=== PATIENT | female | born 1990 | race Caucasian/White ===

== ENCOUNTER 2019-09-27 09:25 | Inpatient (IN) | payer OTHER, SELFPAY ==
--- NOTE | 2019-09-24 14:12 | HP.PCM_ITS ---
History and Physical Date of Admission: 09/27/19 Deedee Arguelles Physician [employer] Signed Encounter Date: 09/20/2019 Expand All Collapse All Hide copied text Rosa for details Tania Gama is a 29 year old female who presents for pre op for cs. Pt reports no concerns today. Pt declines ECV and would like to proceed with pr imary cs. ? PAST MEDICAL HISTORY PAST MEDICAL HISTORY Diagnosis Date ? Abnormal Pap smear of cervix ? ? ascus pos hpv 2015 ? Anemia 2009 ? iron deficiency ? Bicornuate uterus ? ? C. difficile colitis 10/2015 ? Chronic kidney disease ? ? Dysmenorrhea 10/24/2012 ? ? Endometriosis ? Major depression, recurrent (HCC) 01/01/2013 ? PMH - PAST MEDICAL HISTORY OF ? ? Color Vision - Normal ? PMH - PAST MEDICAL HISTORY OF remission ? Nephrotic Syndrome ? Positive KATHRIN (antinuclear antibody) 10/2015 ? Vitamin D deficiency 10/2015 ? PAST SURGICAL HISTORY PAST SURGICAL HISTORY Procedure Laterality Date ? NONE ? ? ? FAMILY HISTORY FAMILY HISTORY Problem Relation Age of Onset ? Hypertension Maternal Grandfather ? ? Breast Cancer Maternal Grandfather 80 ? left breast, primary ? Alzheimer's Disease Maternal Grandmother ? ? other (Chronic Depression) Mother ? ? other (Kidney Stones) Father ? ? other (Other) Father ? ? bowel obstruction, colon resection/colostomy ? Cancer Other ? ? maternal aunt, form of blood dyscrasia ? SOCIAL HISTORY Social History ? Tobacco Use ? Smoking status: Former Smoker ? ? Packs/day: 0.50 ? ? Types: Cigarettes ? ? Start date: 03/31/2015 ? ? Last attempt to quit: 02/02/2016 ? ? Years since quittin.6 ? Smokeless tobacco: Never Used ? Tobacco comment: smoking 0.5 pack per day on and off since 03/2015 Substance Use Topics ? Alcohol use: Not Currently ? ? Comment: Occassionally ? Drug use: No ? CURRENT MEDICATIONS Current Outpatient Medications Medication Sig ? famotidine (PEPCID) 20 mg tablet Take 1 tablet by mouth twice daily. ? vit 91/iron/folic/dha ( + DHA ORAL) Take by mouth. ? No current facility-administered medications for this visit. ? Allergies As of Date: 09/20/2019 Allergen Noted Reaction SEASONALE [LEVONORGESTREL-ETHINYL*11/08/2013 Rash, Hives, and Itching AMOXICILLIN 07/15/2011 Rash CEFDINIR 10/10/2012 GI Upset SEASONIQUE [L NORGEST/E.ESTRADIOL*09/02/2015 Hives SULFA (SULFONAMIDE ANTIBIOTICS) 07/15/2011 Other: See Comments ? Fully Assessed 09/20/2019 ? ? REVIEW OF SYSTEMS Abdomen: no pain Bladder: no dysuria . Expanded ROS: GENERAL: Negative for fever Allergies and current medication updated:Yes ? EXAM: BP 110/70 Wt 155 lb (70.3kg) LMP 12/24/2018 ? GENERAL: pleasant, female in no apparent distress HEENT: Normocephalic and atraumatic NECK: full range of motion DERMATOLOGY: Normal, without lesions, non-icteric and non-hirsute ABDOMEN: gravid, non tender. PELVIC: deferred BIMANUAL: deferred NEURO: alert and oriented x3,exam grossly non-focal EXTREMITIES: normal ? ASSESSMENT AND PLAN: Encounter Diagnosis ? ? ICD-10-CM ? 1. Visit for screening Z36.9 URINE OB DIP B/O 2. 38 weeks gestation of Z3A.38 URINE OB DIP B/O ? 3. Pt has been counseled on risks/benefits and alternatives of surgery including but not limited to anesthesia, bleeding, infection, injury to pelvic structures including bowel, bladder, ureters and vessels. Pt wishes to proceed with surgery at this time. 4. Consent signed and faxed to L&D ? Deedee Wright MD ?3:03 PM Routine Office Visit on 09/20/2019
[2019-09-27] VITALS (15 sets, daily range): BP systolic 103–115; BP diastolic 60–75; PULSE 64–81; RESP 12–16; TEMP 36.3–37.3; O2SAT 96–99; BMI 27.5
[2019-09-27] MEDS: Lactated Ringers 1,000 ML 999 ML IV (10:30)
[2019-09-27 10:46] LABS: Absolute Lymphocyte Count 1.51 X10^3/uL (0.83-4.51); Absolute Neutrophil Count 9.8 X10^3/uL (2.0-7.7); Basophil# 0.07 X10^3/uL; Basophil% 0.6 % (0-1); Eosinophil# 0.19 X10^3/uL; Eosinophils% 1.5 % (0-5); Hematocrit 37.8 % (37-47); Hemoglobin 12.9 g/dL (12.0-15.0); Lymphocyte # 1.51 X10^3/ul (4.0); Lymphocyte % 12.3 % (19-41); Mean Corp Hgb Conc 34.1 g/dL (32-36); Mean Corpuscular Hgb 31.8 pg (27.0-32.0); Mean Corpuscular Volume 93.1 fL (81-99); Mean Platelet Vol. 11.1 fl (6.2-12.0); Monocyte# 0.57 X10^3/uL; Monocyte% 4.6 % (0-10); NRBC Flagged by Analyzer 0 % (0-5); Neutrophil % 79.9 % (47-70); Platelet Count 210 K/mm3 (150-450); RBC Distribution Width CV 13.2 % (11.6-14.6); RBC Distribution Width SD 45.3 fl (35.1-43.9); Red Blood Count 4.06 M/mm3 (4.2-5.4); White Blood Count 12.3 K/mm3 (4.4-11.0)
[2019-09-27] MEDS: Lactated Ringers 1,000 ML 150 ML IV (11:40)
[2019-09-27] MEDS: Sodium Citrate/Citric Acid 30 ML UDC PO (11:40)
[2019-09-27 11:50] LABS: Hepatitis B Surface Antigen Non-Reactive (Nonreactive)
[2019-09-27] MEDS: Cefazolin 2 GM in 0.9% Normal Saline 100 ML IV (11:58)
[2019-09-27] MEDS: Oxytocin 30 units/NS 500 ml 30 UNITS/500 ML IV.SOLN 167 UNITS IV (13:00)
--- NOTE | 2019-09-27 13:09 | PCM.OPRPT ---
Delivery Classification: Scheduled Final SEPIDEH: 10/04/19 Gestational age: 39 Weeks and 0 Days roller mill tender: Wm Muñoz Type of Anesthesia:: Spinal Implants Used: none Date of Procedure: 09/27/19 Pre-Operative Diagnosis: Term gestation, Breech presentation Post-Operative Diagnosis: same, live male Indications for : Breech Description of Procedure: After informed consent was obtained the patient was taken the operating room she was given spinal anesthesia. She was then placed in the supine position. She was prepped and draped in the normal sterile fashion. Anesthesia was found to be adequate. At this time a Pfannenstiel skin incision was made with a knife was carried down to the underlying layer of the fascia. The fascial incision was then extended laterally using curved Verdugo scissor. attention was then turned to the superior aspect of the fascial edge was grasped with 2 straight Bobby clamps tented up and the rectus muscle dissected off sharply using curved Verdugo scissor. Attention was then turned to the inferior aspect where again Bobby clamps were placed in the rectus muscles were tented up and the fascia was dissected off sharply using the curved Verdugo scissor. Rectus muscles were then in the midline bluntly and peritoneum was entered bluntly. Gentle opposing traction was placed. At this time the vesicouterine peritoneum was identified. Scalpel was used to make a uterine incision in a low transverse fashion. The uterus was then entered bluntly gentle opposing traction was placed to extend this incision. Membranes were ruptured clear. 's buttocks was brought to the uterine incision was delivered atraumatically followed by rest of infant body. Delayed cord clamping - Cord was clamped and cut infant was handed to the waiting nursery team. The Placenta was removed from the uterus. The uterus was then removed from the abdominal cavity. The uterus was cleared of all clots and debris using a lap. At this time the uterine incision was reapproximated using #1 Vicryl in a running locked fashion. Hemostasis was appreciated. Posterior cul-de-sac was then cleared of all clots and debris. Uterus was placed back in the abdominal cavity. Gutters were cleared of all clots and debris. Uterine incision was reevaluated and noted to be of excellent hemostasis. At this time the peritoneum was grasped with Kellys and reapproximated with muscle using #2 Vicryl suture in a running fashion. Fascia was then reapproximated using #1 Vicryl in a running fashion. Subcu layer was reapproximated with #2 0 plain gut suture in an interrupted fashion. Subcu layer was closed using 4-0 Monocryl in a subcu fashion. Dry sterile dressing was applied. Instrument lap needle count correct ?2. Anticipated normal postoperative course. Amniotic Membrane Rupture Type: Artificial Amniotic Fluid Description: Clear Placenta Disposition: [facility] Drain: Oseguera to straight drain Cord Entanglement: None Cord Vessel Description: 3 Vessels Esitmated Blood Loss (ml): 650 Infant Gender: Male (1 minute): 9 (5 minute): 9 Delayed cord clamping: Yes Antibiotic Given: Ancef 2 grams IV x1 Pt instructed on risks of surgery: Bleeding, Infection, Injury to surrounding structure(s) including bowel and bladder Complications: None - Admit VTE Documentation VTE Present on Admission: Yes VTE Mechan Device Prophylaxis: SCD's VTE Pharm Prophylaxis ordered?: No
--- NOTE | 2019-09-27 15:23 | NURSING ---
pt has indwelling urinary catheter
[2019-09-27] MEDS: Lactated Ringers 1,000 ML 100 ML IV (16:20)
[2019-09-27] MEDS: Ketorolac 30 MG/ML Syringe IV ×2 (18:03→23:36)
[2019-09-28 04:00] VITALS: BP 109/70; PULSE 76; RESP 16; TEMP 36.7
[2019-09-28] MEDS: Ketorolac 30 MG/ML Syringe IV ×3 (06:06→17:58)
[2019-09-28] MEDS: 0.9% Saline Lock 10 ML Syringe IV ×3 (06:07→17:59)
[2019-09-28 06:27] LABS: Hematocrit 36.9 % (37-47); Hemoglobin 12.3 g/dL (12.0-15.0); Mean Corp Hgb Conc 33.3 g/dL (32-36); Mean Corpuscular Hgb 31.6 pg (27.0-32.0); Mean Corpuscular Volume 94.9 fL (81-99); Mean Platelet Vol. 10.6 fl (6.2-12.0); Platelet Count 195 K/mm3 (150-450); RBC Distribution Width CV 13.3 % (11.6-14.6); RBC Distribution Width SD 45.8 fl (35.1-43.9); Red Blood Count 3.89 M/mm3 (4.2-5.4); White Blood Count 14.3 K/mm3 (4.4-11.0)
--- NOTE | 2019-09-28 08:15 | PCM.PN.OB ---
Subjective: pt seen at bedside, doing well. Patient reports good pain control. Mild lochia. Voiding without difficulty. Tolerating regular diet. Denies any nausea, vomiting, chest pain, shortness of breath. Breast-feeding. - Physical Exam Vitals/I&O's: Vital Signs Temp Pulse Resp BP Pulse Ox 98.0 F 76 16 109/70 96 09/28/19 04:00 09/28/19 04:00 09/28/19 04:00 09/28/19 04:00 09/27/19 23:00 Oxygen Delivery Method Room Air Weight: 70.488 kg Body Mass Index (BMI) 27.5 Intake and Output for Last 24 Hours 09/26/19 09/27/19 09/28/19 23:59 23:59 23:59 Intake Total 2874.17 / 2874.17 Output Total 900 / 900 650 / 650 Balance / -650 / -650 General: Alert, Oriented x3 Abdomen: Soft, Non-Distended, - - Incision dressing is dry and intact. Fundus is firm. Extremities: No Calf Tenderness Neurological: Cranial nerves II-XII grossly intact Laboratory Results 09/27/19 10:30: WBC 12.3 H, RBC 4.06 L, Hgb 12.9, Hct 37.8, MCV 93.1, MCH 31.8, MCHC 34.1, RDW Std Deviation 45.3 H, RDW Coeff of El 13.2, Plt Count 210, MPV 11.1, Immature Gran % (Auto) 1.100 H, Neut % (Auto) 79.9 H, Lymph % (Auto) 12.3 L, [place] % (Auto) 4.6, Eos % (Auto) 1.5, Baso % (Auto) 0.6, Absolute Neuts (auto) 9.8 H, Absolute Lymphs (auto) 1.51, Nucleated RBC % 0 09/27/19 10:30: Blood Type B POSITIVE, Antibody Screen NEGATIVE 09/27/19 10:30: Hep Bs Antigen Non-Reactive 09/28/19 06:20: WBC 14.3 H, RBC 3.89 L, Hgb 12.3, Hct 36.9 L, MCV 94.9, MCH 31.6, MCHC 33.3, RDW Std Deviation 45.8 H, RDW Coeff of El 13.3, Plt Count 195, MPV 10.6 Current Medications Acetaminophen (Tylenol) 1,000 mg PO Q8H PRN PRN Reason: Pain Score 1-3/10 Bisacodyl (Dulcolax) 10 mg RECTAL UD PRN PRN Reason: If no BM Hydrocortisone (Hytone) 1 applic TOPICAL TID PRN PRN; Protocol PRN Reason: Discomfort Lactated Ringer's () 1,000 mls @ 100 mls/hr IV .Q10H [facility] Last Admin: 09/27/19 22:31 Dose: Not Given Documented by: Naloxone HCl 4 mg/ Dextrose 504 mls @ 0 mls/hr IV .Q0M PRN; Protocol PRN Reason: Respiratory depression Ibuprofen (Motrin) 600 mg PO Q6H PRN PRN PRN Reason: Pain Score 1-3/10 Ketorolac Tromethamine (Toradol (Bkc)) 30 mg IV Q6H [facility] Stop: 09/29/19 12:01 Last Admin: 09/28/19 06:06 Dose: 30 mg Documented by: Methylergonovine Maleate (Methergine) 0.2 mg IM X1 PRN PRN Reason: Uterine Atony Naloxone HCl (Narcan) 0.02 mg IV Q1M PRN PRN Reason: RR <10 and pt unresponsive Ondansetron HCl (Zofran) 4 mg IV Q4H PRN PRN PRN Reason: Nausea Oxycodone HCl (Oxyir) 5 - 10 mg PO Q4H PRN PRN PRN Reason: Pain Score 4-10/10 Prochlorperazine Edisylate (Compazine Iv) 10 mg IV Q6H PRN PRN PRN Reason: NAUSEA Senna/Docusate Sodium (Senokot-S, Xiao-Colace) 0 tablet PO DAILY PRN PRN Reason: Constipation Simethicone (Mylicon) 80 mg PO PCHS PRN PRN Reason: Indigestion/stomach pain Sodium Chloride () 5 - 15 ml IV UD PRN PRN Reason: SALINE FLUSH Last Admin: 09/28/19 06:07 Dose: 10 ml Documented by: Medical Necessity - Tobacco Use Smoking Status: Former smoker Assessment/Plan POD #1, doing well routine care pain mgmt ambulation labs and vs stable
[2019-09-28 08:25] VITALS: BP 105/65; PULSE 63; RESP 16; TEMP 36.9; O2SAT 97
--- NOTE | 2019-09-28 08:25 | NURSING ---
This RN ordered case management consult for history of depression per protocol. Dr. Arguelles requested that order to be cancelled due to feeling that the patient is appropriate and doing well. Order cancelled per request.
[2019-09-28] MEDS: Senna/Docusate Sodium 1 Tablet PO (12:25)
[2019-09-28 12:30] VITALS: BP 109/77; PULSE 58; RESP 16; TEMP 37; O2SAT 100
[2019-09-28 16:30] VITALS: BP 112/80; PULSE 72; RESP 16; TEMP 37.1; O2SAT 97
[2019-09-28 19:57] VITALS: BP 111/74; PULSE 70; RESP 16; TEMP 36.6
[2019-09-29] MEDS: Ketorolac 30 MG/ML Syringe IV ×2 (00:36→06:35)
[2019-09-29] MEDS: 0.9% Saline Lock 10 ML Syringe IV ×2 (00:36→06:35)
[2019-09-29 02:31] VITALS: BP 116/69; PULSE 61; RESP 16; TEMP 36.6
[2019-09-29 07:30] VITALS: BP 114/73; PULSE 54; RESP 16; TEMP 36.5; O2SAT 96
--- NOTE | 2019-09-29 08:15 | PN.OBGYN_ITS ---
Subjective: Patient seen at bedside, doing well. Patient reports good pain control. Mild lochia. Voiding without difficulty, passing flatus. Breast-feeding. Patient requesting DC home today. - Physical Exam Vitals/I&O's: Vital Signs Temp Pulse Resp BP Pulse Ox 97.7 F L 54 L 16 114/73 96 09/29/19 07:30 09/29/19 07:30 09/29/19 07:30 09/29/19 07:30 09/29/19 07:30 Oxygen Delivery Method Room Air Weight: 70.488 kg Body Mass Index (BMI) 27.5 Intake and Output for Last 24 Hours 09/27/19 09/28/19 09/29/19 23:59 23:59 23:59 Intake Total 2874.17 / 2874.17 800 / 800 Output Total 900 / 900 1450 / 1450 Balance 1973.17 / 1973.17 -1450 / -1450 800 / 800 General: Alert, Oriented x3 Abdomen: Soft, Non-Distended, - - Fundus firm, incision dressing dry and intact Extremities: No Calf Tenderness Neurological: Cranial nerves II-XII grossly intact Current Medications Acetaminophen (Tylenol) 1,000 mg PO Q8H PRN PRN Reason: Pain Score 1-3/10 Bisacodyl (Dulcolax) 10 mg RECTAL UD PRN PRN Reason: If no BM Hydrocortisone (Hytone) 1 applic TOPICAL TID PRN PRN; Protocol PRN Reason: Discomfort Lactated Ringer's () 1,000 mls @ 100 mls/hr IV .Q10H [facility] Last Admin: 09/29/19 06:07 Dose: Not Given Documented by: Naloxone HCl 4 mg/ Dextrose 504 mls @ 0 mls/hr IV .Q0M PRN; Protocol PRN Reason: Respiratory depression Ibuprofen (Motrin) 600 mg PO Q6H PRN PRN PRN Reason: Pain Score 1-3/10 Ketorolac Tromethamine (Toradol (Bkc)) 30 mg IV Q6H [facility] Stop: 09/29/19 12:01 Last Admin: 09/29/19 06:35 Dose: 30 mg Documented by: Methylergonovine Maleate (Methergine) 0.2 mg IM X1 PRN PRN Reason: Uterine Atony Naloxone HCl (Narcan) 0.02 mg IV Q1M PRN PRN Reason: RR <10 and pt unresponsive Ondansetron HCl (Zofran) 4 mg IV Q4H PRN PRN PRN Reason: Nausea Oxycodone HCl (Oxyir) 5 - 10 mg PO Q4H PRN PRN PRN Reason: Pain Score 4-10/10 Prochlorperazine Edisylate (Compazine Iv) 10 mg IV Q6H PRN PRN PRN Reason: NAUSEA Senna/Docusate Sodium (Senokot-S, Xiao-Colace) 0 tablet PO DAILY PRN PRN Reason: Constipation Last Admin: 09/28/19 12:25 Dose: 1 tablet Documented by: Simethicone (Mylicon) 80 mg PO PCHS PRN PRN Reason: Indigestion/stomach pain Sodium Chloride () 5 - 15 ml IV UD PRN PRN Reason: SALINE FLUSH Last Admin: 09/29/19 06:35 Dose: 10 ml Documented by: Medical Necessity - Tobacco Use Smoking Status: Former smoker Assessment/Plan POD #2, doing well Routine care Ambulation Pain management DC home
--- NOTE | 2019-09-29 08:16 | DCINST_ITS ---
Discharge Diet: No Restrictions Discharge Activity: Return to Normal Activity, May Not Drive - for 2 weeks, May not drive while taking narcotic pain medications., May Shower, May Take a Tub Bath - in 7 days. May resume sexual activity in: 4-6 weeks Lifting Restrictions: 20 pounds Additional Activity Instructions:: Nothing in the vagina for 4-6 weeks. You may return to work/school in 6 weeks. Call your doctor if your incision/area has: Continuous Slow Oozing, Sudden Increased Bleeding, Increased Pain/ Swelling, Increased Redness, Foul Smelling Discharge Call your doctor if you observe: Fever of 101 or Higher, Using more than one pad per hour - for 2 hours Suture Line Care: Avoid Pulling/Pushing, Avoid Pinching/Bending Cleanse incision/area with: Keep Dressing Clean & Dry Additional Instructions: If you experience any of the following, contact your healthcare provider. * Bleeding that soaks a pad every hour for 2 hours * Fever 100.4 or higher * Unrelieved incision or abdominal pain * Swelling, redness, discharge or bleeding from your incision or episiotomy site * Your incision begins to separate * Problems urinating (including inability to urinate or burning while urinating). * Visual changes * Severe headache * Flu-like symptoms * Pain or redness in one of both of your breasts * Pain, warmth, tenderness or swelling in your legs, especially the calf area * Frequent nausea and vomiting * Symptoms of depression or anxiety If you experience any of the following, call 911 or go to the nearest Emergency Room. * Chest pain * Problems breathing * Seizure activity * Partial or complete paralysis of a body part, slurred speech, weakness or drooping of the face, or a sudden inability to walk or hold your balance Allergies/Adverse Reactions: Allergies amoxicillin Allergy (Verified 09/27/19 09:55) Hives cefdinir Allergy (Verified 09/27/19 09:55) Upset Stomach ethinyl estradiol [From Seasonale ()] Allergy (Verified 09/27/19 09:55) Hives levonorgestrel [From Seasonale (91)] Allergy (Verified 09/27/19 09:55) Hives levonorgestrel-ethinyl estradiol [From Seasonique] Allergy (Verified 09/27/19 09:55) Hives Sulfa (Sulfonamide Antibiotics) Allergy (Verified 09/27/19 09:55) Hives Medications to take at Discharge Vits [Prenatabs FA ] 1 tab PO DAILY 09/27/19 Acetaminophen [Tylenol] 1,000 mg PO Q8H PRN #60 tab 09/28/19 Ibuprofen [Motrin] 600 mg PO Q6H PRN PRN #60 tab 09/28/19 Oxycodone [Oxyir] 5 - 10 mg PO Q4H PRN PRN 7 Days #20 tab 09/28/19 Senna/Docusate Sodium [Senokot-S] 1 tab PO DAILY PRN #20 tab 09/28/19 SimETHICONE [Mylicon] 80 mg PO PCHS PRN #30 tab 09/28/19 The following prescriptions were given: Ibuprofen [Motrin] 600 mg PO Q6H PRN PRN #60 tab PRN Reason: Pain Score 1-3/10 Transmission Status: Received by [facility] [facility] SimETHICONE [Mylicon] 80 mg PO PCHS PRN #30 tab PRN Reason: Indigestion/stomach pain Transmission Status: Received by [facility] [place] [address] Oxycodone [Oxyir] 5 - 10 mg PO Q4H PRN PRN 7 Days #20 tab PRN Reason: Pain Score 4-10/10 Transmission Status: Received by [facility] [place] [address] Senna/Docusate Sodium [Senokot-S] 1 tab PO DAILY PRN #20 tab PRN Reason: Constipation Transmission Status: Received by [facility] [place] [address] Acetaminophen [Tylenol] 1,000 mg PO Q8H PRN #60 tab PRN Reason: Pain Score 1-3/10 Transmission Status: Received by [address] Follow-Up: Call to make an appointment with your doctor for an incision check in 1-2 weeks. You will also need a 6 week post- follow up appointment. Test results from this visit will be discussed in further detail at your follow- up appointment, if applicable. Please Follow Up With: Deedee Wright MD - Call to make an appointment for an incision check in [phone] When: You will need a post- check in 6 weeks. Primary Care Physician: Parrish Marie DO [Primary Care Provider] -
--- NOTE | 2019-09-29 08:17 | PCM.DC.BLA ---
Discharge Summary Date of Admission: 09/27/19 Date of Discharge: 09/29/19 Summary: Patient was admitted on October 26, 2019 for scheduled 39 weeks gestation breech presentation. Patient underwent an uncomplicated primary low transverse section. She had a normal an uncomplicated postoperative course. She was discharged home on postoperative day #2 in stable condition. - Physical Exam Vitals/I&O's: Vital Signs Temp Pulse Resp BP Pulse Ox 97.7 F L 54 L 16 114/73 96 09/29/19 07:30 09/29/19 07:30 09/29/19 07:30 09/29/19 07:30 09/29/19 07:30 Oxygen Delivery Method Room Air Weight: 70.488 kg Body Mass Index (BMI) 27.5 Intake and Output for Last 24 Hours 09/27/19 09/28/19 09/29/19 23:59 23:59 23:59 Intake Total 2874.17 / 2874.17 800 / 800 Output Total 900 / 900 1450 / 1450 Balance 1974.17 / 1974.17 -1450 / -1450 800 / 800 Current Medications Acetaminophen (Tylenol) 1,000 mg PO Q8H PRN PRN Reason: Pain Score 1-3/10 Bisacodyl (Dulcolax) 10 mg RECTAL UD PRN PRN Reason: If no BM Hydrocortisone (Hytone) 1 applic TOPICAL TID PRN PRN; Protocol PRN Reason: Discomfort Lactated Ringer's () 1,000 mls @ 100 mls/hr IV .Q10H [facility] Last Admin: 09/29/19 06:07 Dose: Not Given Documented by: Naloxone HCl 4 mg/ Dextrose 504 mls @ 0 mls/hr IV .Q0M PRN; Protocol PRN Reason: Respiratory depression Ibuprofen (Motrin) 600 mg PO Q6H PRN PRN PRN Reason: Pain Score 1-3/10 Ketorolac Tromethamine (Toradol (Bkc)) 30 mg IV Q6H [facility] Stop: 09/29/19 12:01 Last Admin: 09/29/19 06:35 Dose: 30 mg Documented by: Methylergonovine Maleate (Methergine) 0.2 mg IM X1 PRN PRN Reason: Uterine Atony Naloxone HCl (Narcan) 0.02 mg IV Q1M PRN PRN Reason: RR <10 and pt unresponsive Ondansetron HCl (Zofran) 4 mg IV Q4H PRN PRN PRN Reason: Nausea Oxycodone HCl (Oxyir) 5 - 10 mg PO Q4H PRN PRN PRN Reason: Pain Score 4-10/10 Prochlorperazine Edisylate (Compazine Iv) 10 mg IV Q6H PRN PRN PRN Reason: NAUSEA Senna/Docusate Sodium (Senokot-S, Xiao-Colace) 0 tablet PO DAILY PRN PRN Reason: Constipation Last Admin: 09/28/19 12:25 Dose: 1 tablet Documented by: Simethicone (Mylicon) 80 mg PO PCHS PRN PRN Reason: Indigestion/stomach pain Sodium Chloride () 5 - 15 ml IV UD PRN PRN Reason: SALINE FLUSH Last Admin: 09/29/19 06:35 Dose: 10 ml Documented by:
[2019-09-29 12:23] VITALS: BP 113/80; PULSE 82; RESP 16; TEMP 36.5; O2SAT 96
== END 2019-09-29 12:35 | disposition home or self-care (01) | DRG 788 ==
PROVIDERS: Admitting Provider Obstetrics & Gynecology; PCP Student in an Organized Health Care Education/Training Program; Referring Provider Obstetrics & Gynecology; Visit Provider Obstetrics & Gynecology
PROC: 10D00Z1 Extraction of Products of Conception, Low, Open Approach (ICD-10-PCS; CPT 59514; principal; 2019-09-27 11:45)
DX: O32.1XX0 Maternal care for breech presentation, not applicable or unspecified (principal); Z3A.39 39 weeks gestation of pregnancy; Z37.0 Single live birth
CPT/HCPCS: 85025; 85027; 86850; 86900; 86901; 87340; 99218; 99251; J7120; A4216; G0378; G0463; J2405

== ENCOUNTER 2025-07-07 10:20 | Outpatient (CLI) | payer OTHER, SELFPAY ==
[2025-07-07] VITALS (26 sets, daily range): BP systolic 140–168; BP diastolic 97–104; PULSE 64–83; RESP 16–18; TEMP 36.7–37.1; O2SAT 97–100; BMI 29.2
[2025-07-07 11:19] LABS: Hematocrit 42.1 % (37-47); Hemoglobin 14.7 g/dL (12.0-15.0); Mean Corp Hgb Conc 34.9 g/dL (32-36); Mean Corpuscular Volume 89.2 fL (81-99); Mean Platelet Vol. 11.7 fl (6.2-12.0); Platelet Count 243 K/mm3 (150-450); RBC Distribution Width CV 13.2 % (11.6-14.6); RBC Distribution Width SD 43.2 fl (35.1-43.9); Red Blood Count 4.72 M/mm3 (4.2-5.4); White Blood Count 11.2 K/mm3 (4.4-11.0)
[2025-07-07] MEDS: Betamethasone/Betamethasone 30 MG/5 ML Vial 12 MG IM (11:21)
[2025-07-07] MEDS: Magnesium Sulfate 4gm/100mL 4 GM/100 ML IV.SOLN. IV (11:28)
[2025-07-07 11:39] LABS: Creatinine, Urine (random) 159.00 mg/dL (28.00-217.00)
[2025-07-07 11:51] LABS: Protein, Urine (Random) > 600.0 mg/dL (0.0-12.0); Protein:Creat Ratio UNABLE TO CALCULATE mg/g CRE (0-200)
[2025-07-07] MEDS: Magnesium Sulfate 20 GM/500 ML BAG IV (11:54)
--- NOTE | 2025-07-07 12:11 | PCM.HP.OB ---
HPI - General General Date of Admission: 07/07/25 Date of Service: 07/07/25 Chief Complaint: elevated blood pressure HPI Narrative NORIS RIOS, is a 34 F who presents from the office with elevated blood pressure. The patient was seen for an add on visit in the office for swelling, elevated BP and nausea. She reports she has started to feel generally unless with nausea and stomach upset. She noticed increased swelling of LE's over the weekend. She denies GARCIA or vision changes. PFSH PFSH Home Medications ?Medication ?Instructions ?Recorded ?Last Taken ?Type vits,calcium no.78-iron 1 tab PO DAILY pt 09/27/19 07/06/25 19:00 History fumarate-folic acid 29 mg-1 mg 1 TAB tablet acetaminophen 500 mg tablet 1,000 mg (2 x 500 mg) PO Q8H PRN 09/28/19 Unknown Rx Held on 07/07/25. Pain Score 1-3/10 #60 tabs Instructions: Order Changed ibuprofen 600 mg tablet 600 mg PO Q6H PRN PRN Pain Score 09/28/19 Unknown Rx Held on 07/07/25. 1-3/10 #60 tabs Instructions: Order Changed sennosides 8.6 mg-docusate sodium 1 tab PO DAILY PRN Constipation 09/28/19 Unknown Rx 50 mg tablet #20 tabs Held on 07/07/25. Instructions: Order Completed simethicone 80 mg chewable tablet 80 mg PO PCHS PRN 09/28/19 Unknown Rx Held on 07/07/25. Indigestion/stomach pain #30 tabs Instructions: Order Completed Allergy/AdvReac Type Severity Reaction Status Date / Time amoxicillin Allergy Hives Verified 09/27/19 09:55 cefdinir Allergy Upset Verified 09/27/19 09:55 Stomach ethinyl estradiol (From Allergy Hives Verified 09/27/19 09:55 Seasonale (91)) levonorgestrel (From Allergy Hives Verified 09/27/19 09:55 Seasonale (91)) levonorgestrel-ethinyl Allergy Hives Verified 09/27/19 09:55 estradiol (From Seasonique) Sulfa (Sulfonamide Allergy Hives Verified 09/27/19 09:55 Antibiotics) Social History Smoking Status: Former smoker History Elective abortions Hx Para 0 Spontaneous abortions Hx # Term Pregnancies Ectopic pregnancies Hx # Pregnancies Multiple births # of living children Vital Signs Vital Signs Vital Signs: 07/07/25 10:35 07/07/25 10:35 07/07/25 10:35 Temperature Temperature Source Temporal Pulse Rate 64 Respiratory Rate Blood Pressure 164/99 H Blood Pressure Mean BP Systolic 164 BP Diastolic 99 Blood Pressure Source Blood Pressure Position Blood Pressure Location Pulse Ox Oxygen Delivery Method 07/07/25 10:35 07/07/25 10:35 07/07/25 10:35 Temperature Temperature Source Pulse Rate 75 Respiratory Rate 16 Blood Pressure 164/99 H Blood Pressure Mean BP Systolic 164 BP Diastolic 99 Blood Pressure Source Blood Pressure Position Blood Pressure Location Pulse Ox Oxygen Delivery Method 07/07/25 10:35 07/07/25 10:35 07/07/25 10:39 Temperature 98.1 F Temperature Source Pulse Rate 75 Respiratory Rate Blood Pressure Blood Pressure Mean BP Systolic BP Diastolic Blood Pressure Source Blood Pressure Position Blood Pressure Location Pulse Ox 100 Oxygen Delivery Method 07/07/25 10:39 07/07/25 10:51 07/07/25 10:51 Temperature Temperature Source Pulse Rate 73 Respiratory Rate Blood Pressure 167/102 H Blood Pressure Mean BP Systolic 167 BP Diastolic 102 Blood Pressure Source Blood Pressure Position Blood Pressure Location Pulse Ox 98 Oxygen Delivery Method 07/07/25 11:07 07/07/25 11:07 07/07/25 11:30 Temperature Temperature Source Temporal Pulse Rate 69 Respiratory Rate Blood Pressure 168/100 H Blood Pressure Mean BP Systolic 168 BP Diastolic 100 Blood Pressure Source Blood Pressure Position Blood Pressure Location Pulse Ox Oxygen Delivery Method 07/07/25 11:30 07/07/25 11:31 07/07/25 11:31 Temperature 98.1 F Temperature Source Temporal Pulse Rate 68 68 Respiratory Rate 16 Blood Pressure 149/102 H 149/102 H Blood Pressure Mean 117 BP Systolic 149 BP Diastolic 102 Blood Pressure Source Monitor Blood Pressure Position Semi-Fowlers Blood Pressure Location Left Arm Pulse Ox Oxygen Delivery Method Room Air 07/07/25 11:43 07/07/25 11:43 07/07/25 11:45 Temperature Temperature Source Pulse Rate 77 77 Respiratory Rate 16 Blood Pressure 143/102 H 143/102 H Blood Pressure Mean 115 BP Systolic 143 BP Diastolic 102 Blood Pressure Source Monitor Blood Pressure Position Semi-Fowlers Blood Pressure Location Left Arm Pulse Ox Oxygen Delivery Method Room Air 07/07/25 11:53 07/07/25 11:53 07/07/25 12:03 Temperature Temperature Source Pulse Rate 79 Respiratory Rate Blood Pressure 146/103 H 141/104 H Blood Pressure Mean BP Systolic 146 141 BP Diastolic 103 104 Blood Pressure Source Blood Pressure Position Blood Pressure Location Pulse Ox Oxygen Delivery Method 07/07/25 12:03 Temperature Temperature Source Pulse Rate 74 Respiratory Rate Blood Pressure Blood Pressure Mean BP Systolic BP Diastolic Blood Pressure Source Blood Pressure Position Blood Pressure Location Pulse Ox Oxygen Delivery Method Weight Weight: 165 lb 5.547 oz Body Mass Index (BMI) 29.2 Physical Exam Const alert and no apparent distress General Appearance: comfortable Resp normal respiratory effort GI soft to palpation, non-tender and non-distended Extremity Extremity Narrative: Brisk patellar reflexes Labs Labs Labs: Blood Type B POSITIVE Antibody Screen NEGATIVE Hct, (37-47) 42.1 % Hgb, (12.0-15.0) 14.7 g/dL Hep Bs Antigen, (Nonreactive) Non-Reactive Rhogam given: No Assessment & Plan (1) 30 weeks gestation of : (2) Severe pre-eclampsia: PLAN: Severe range BP's in office and on admission to L&D. Mag gtt started and IV Labetalol HTN protocol. GBS collected and BMZ given for lung maturity. P/c ratio elevated. Plans for a repeat C/S if delivery indicated. Will need formal ultrasound but recommend transport to a tertiary care center. Called MFM at [facility] for transport. (3) History of section: (4) Abnormal glucose complicating :
[2025-07-07 13:09] LABS: AST(SGOT) 49 U/L (<=31); Alanine Aminotransfer ALT/SGPT 52 U/L (<=34); Estimated Creatinine Clearance 130.31 ml/min (50-250); Uric Acid 6.6 mg/dL (2.6-6.0)
== END 2025-07-07 14:15 | disposition short-term general hospital (02) ==
LOC: WPOUT 10:34 → WP 10:34
PROVIDERS: PCP Student in an Organized Health Care Education/Training Program; Referring Provider Obstetrics & Gynecology; Visit Provider Obstetrics & Gynecology
DX: O14.13 Severe pre-eclampsia, third trimester (principal); Z3A.30 30 weeks gestation of pregnancy
CPT/HCPCS: 96365; 96366; 96375; 36415; 59025; 59050; 82565; 82570; 84156; 84450; 84460; 84550; 85027; 87081; 87653; 96372; 99221; G0378; J0702